=== PATIENT | female | born 1970 | race Caucasian/White ===

== ENCOUNTER 2018-01-19 11:59 | Emergency (ER) | payer OTHER ==
[~2018-01-19] VITALS: Ht 162.6 cm; Wt 86.4 kg
[~2018-01-19 11:59] MED LIST: CHOL400C11 PO; IBUP200C8 PO; LEVO75TA5 PO; MAGN100T PO; MELA10TA PO; NORE1TAB11 PO; OXYC-302 PO; POLY17PO5 PO; WHEA1POW8 PO
[2018-01-19 13:30] VITALS: BP 106/56
== END 2018-01-19 14:19 | disposition home or self-care (01) ==
LOC: ED 14:00
DX: M79.662 Pain in left lower leg (principal); Z88.1 Allergy status to other antibiotic agents; Z88.5 Allergy status to narcotic agent
CPT/HCPCS: 99284